=== PATIENT | male | born 1960 | race Two or more races ===

== ENCOUNTER 2021-08-07 15:57 | Inpatient (IN) | payer OTHER ==
[~2021-08-07] VITALS: Ht 172.7 cm; Wt 138.4 kg
[2021-08-07] MEDS ORDERED: methylPREDNISolone SOD SUCC 125 MG/2 ML VL IV ONE (17:30)
[2021-08-07] MEDS ORDERED: ALBUTEROL SULF 2.5 MG/0.5ML(0.5%) NEB SOLN NEB ONE ×2 (19:15→23:45)
[2021-08-07] MEDS ORDERED: IPRATROPIUM BROM 0.5 MG/2.5ML INH SOL NEB ONE ×2 (19:15→23:45)
[2021-08-07 19:51] LABS: Basophils # (auto) 0.2 10 ^3/uL (0-0.2); Basophils % (auto) 3.1 % (0.0-2.0); Eosinophils # (auto) 0.8 10 ^3/uL (0-0.8); Eosinophils % (auto) 12.8 % (0.0-7.0); Hemoglobin 15.4 g/dL (13.5-17.5); Lymphocytes % (auto) 15.5 % (10.0-50.0); Mean Corpuscular Hemoglobin 31.4 pg (28.0-32.0); Mean Corpuscular Hgb Conc. 33.6 g/dL (32.0-36.0); Mean Corpuscular Volume 93.5 fL (80.0-100.0); Monocytes % (auto) 14.6 % (0.0-12.0); Neutrophils # (auto) 3.6 10 ^3/uL (1.6-8.6); Nucleated Red Blood Cells % 0.1 %; Red Blood Cells 4.92 10^6/uL (4.5-5.90); Red Cell Distribution Width 13.9 % (11.8-14.3); White Blood Cell 6.6 10^3/uL (4.4-10.8)
[2021-08-07 19:54] LABS: Albumin 3.8 g/dL (3.4-5.0); Calcium 8.6 mg/dL (8.5-10.1); Potassium 4.6 mmol/L (3.5-5.1)
[2021-08-07 20:02] LABS: BUN/Creatinine Ratio 18.5; Bilirubin, Total 0.4 mg/dL (0.2-1.0)
[2021-08-07] MEDS ORDERED: TEMAZEPAM 15 MG CAP PO PRN (22:00)
[2021-08-07] MEDS ORDERED: ACETAMINOPHEN 325 MG TAB PO PRN (22:00)
[2021-08-07] MEDS ORDERED: MORPHINE SULFATE INJECTION 2 MG/ML SYRG IV PRN (22:00)
[2021-08-07] MEDS ORDERED: ONDANSETRON HCL 4 MG/2 ML VIAL IV PRN (22:00)
[2021-08-07] MEDS ORDERED: NITROGLYCERIN 0.4 MG SL TAB SL PRN (22:00)
[2021-08-07] MEDS: ASCORBIC ACID 500 MG TAB PO SCH (22:45)
[2021-08-07] MEDS: methylPREDNISolone SOD SUCC 125 MG/2 ML VL IV SCH (22:45)
[2021-08-07 23:09] LABS: Urine Bacteria NONE SEEN /hpf (None Seen); Urine Blood Negative /uL (Negative); Urine Hyaline Cast FEW /lpf (0 - 2); Urine Mucus FEW (None Seen); Urine Specific Gravity 1.025 (1.001-1.035); Urine WBC 1 /hpf (0 - 3)
[2021-08-08] VITALS (8 sets, daily range): BP systolic 108–127; BP diastolic 67–87
[2021-08-08] MEDS ORDERED: ALB2.5IS (01:59)
[2021-08-08] MEDS ORDERED: ALBU108A5 IN (01:59)
[2021-08-08] MEDS ORDERED: TIOTCAP IN (01:59)
[2021-08-08] MEDS ORDERED: METO-289 PO (01:59)
[2021-08-08] MEDS ORDERED: INFLUENZA QUAD 2021-2022 0.5 ML SYRG IM ONE (02:00)
[2021-08-08] MEDS ORDERED: ALBUTEROL SULF 2.5 MG/0.5ML(0.5%) NEB SOLN NEB SCH (06:00)
[2021-08-08] MEDS ORDERED: IPRATROPIUM BROM 0.5 MG/2.5ML INH SOL NEB SCH (06:00)
[2021-08-08 06:34] LABS: Basophils # (auto) 0 10 ^3/uL (0-0.2); Basophils % (auto) 0.2 % (0.0-2.0); Eosinophils # (auto) 0 10 ^3/uL (0-0.8); Hematocrit 45.4 % (41.0-53.0); Hemoglobin 15.2 g/dL (13.5-17.5); Lymphocytes # (auto) 0.3 10 ^3/uL (0.4-5.4); Lymphocytes % (auto) 3.6 % (10.0-50.0); Mean Corpuscular Hemoglobin 31.2 pg (28.0-32.0); Mean Corpuscular Hgb Conc. 33.4 g/dL (32.0-36.0); Mean Corpuscular Volume 93.6 fL (80.0-100.0); Monocytes # (auto) 0.1 10 ^3/uL (0-1.3); Monocytes % (auto) 1.1 % (0.0-12.0); Neutrophils # (auto) 8.5 10 ^3/uL (1.6-8.6); Neutrophils % (auto) 95.1 % (37.0-80.0); Red Blood Cells 4.85 10^6/uL (4.5-5.90); Red Cell Distribution Width 14.1 % (11.8-14.3); White Blood Cell 8.9 10^3/uL (4.4-10.8)
[2021-08-08 06:36] LABS: BUN/Creatinine Ratio 20.2; Calcium 8.9 mg/dL (8.5-10.1)
[2021-08-08] MEDS: IPRATROPIUM BROM 0.5 MG/2.5ML INH SOL NEB SCH ×5 (07:34→22:00)
[2021-08-08] MEDS: ALBUTEROL SULF 2.5 MG/0.5ML(0.5%) NEB SOLN NEB SCH ×5 (07:34→22:00)
[2021-08-08] MEDS: PANTOPRAZOLE 40 MG TAB PO SCH (09:21)
[2021-08-08] MEDS: methylPREDNISolone SOD SUCC 125 MG/2 ML VL IV SCH ×3 (09:21→21:34)
[2021-08-08] MEDS: ZINC SULFATE 220mg CAP or TAB PO SCH (09:21)
[2021-08-08] MEDS: ASCORBIC ACID 500 MG TAB PO SCH ×2 (09:22→21:35)
[2021-08-08] MEDS: THROAT LOZENGES(CEPASTAT) MT PRN (13:34)
[2021-08-08] MEDS: DOXYCYCLINE 100MG/250ML 250 ML IV SCH (13:34)
[2021-08-08] MEDS: FUROSEMIDE 20 MG/2 ML VIAL IV SCH (17:46)
[2021-08-08] MEDS: BUDESONIDE (INHALATION) 0.5 MG/2 ML NEB NEB SCH (18:37)
[2021-08-08] MEDS: POTASSIUM EFFERVESENT TAB 25 MEQ PO SCH (21:35)
[2021-08-09] MEDS: DOXYCYCLINE 100MG/250ML 250 ML IV SCH ×2 (01:18→12:44)
[2021-08-09] MEDS: PROMETHAZINE W/CODEINE 5 ML ORAL SYRUP PO PRN ×2 (02:53→09:41)
[2021-08-09] MEDS: methylPREDNISolone SOD SUCC 125 MG/2 ML VL IV SCH ×2 (05:17→09:39)
[2021-08-09] MEDS: FUROSEMIDE 20 MG/2 ML VIAL IV SCH ×2 (05:18→17:24)
[2021-08-09] MEDS ORDERED: ALBUTEROL SULF 2.5 MG/0.5ML(0.5%) NEB SOLN NEB SCH (06:00)
[2021-08-09] MEDS ORDERED: IPRATROPIUM BROM 0.5 MG/2.5ML INH SOL NEB SCH (06:00)
[2021-08-09 06:17] LABS: Albumin 3.6 g/dL (3.4-5.0); Calcium 8.4 mg/dL (8.5-10.1); Potassium 4.7 mmol/L (3.5-5.1)
[2021-08-09 06:20] LABS: BUN/Creatinine Ratio 28.6; Bilirubin, Total 0.4 mg/dL (0.2-1.0); Total Protein 6.2 g/dL (6.4-8.2)
[2021-08-09] MEDS: ALBUTEROL SULF 2.5 MG/0.5ML(0.5%) NEB SOLN NEB SCH ×5 (07:33→22:52)
[2021-08-09] MEDS: IPRATROPIUM BROM 0.5 MG/2.5ML INH SOL NEB SCH ×5 (07:34→22:52)
[2021-08-09 08:00] VITALS: BP 119/67
[2021-08-09 08:33] VITALS: BP 119/67
[2021-08-09] MEDS: ZINC SULFATE 220mg CAP or TAB PO SCH (09:39)
[2021-08-09] MEDS: PANTOPRAZOLE 40 MG TAB PO SCH (09:39)
[2021-08-09] MEDS: ASCORBIC ACID 500 MG TAB PO SCH (09:39)
[2021-08-09] MEDS: POTASSIUM EFFERVESENT TAB 25 MEQ PO SCH ×2 (09:40→21:44)
[2021-08-09] MEDS: THROAT LOZENGES(CEPASTAT) MT PRN (09:40)
[2021-08-09] MEDS: ENOXAPARIN SOD 40 MG/0.4 ML SYRINGE SC SCH (09:40)
[2021-08-09] MEDS: BUDESONIDE (INHALATION) 0.5 MG/2 ML NEB NEB SCH ×2 (10:36→18:19)
[2021-08-09 13:08] VITALS: BP 126/71
[2021-08-09] MEDS ORDERED: methylPREDNISolone SOD SUCC 40 MG/ML VL IV SCH (15:30)
[2021-08-09] MEDS ORDERED: IOHEXOL 350 MG/ML 100ML IJ ONE (15:50)
[2021-08-09] MEDS: methylPREDNISolone SOD SUCC 40 MG/ML VL IV SCH ×2 (16:02→21:43)
[2021-08-09 17:16] VITALS: BP 123/71
[2021-08-09] MEDS: LIDOCAINE VISCOUS 2% 15ML UD MT SCH (17:24)
[2021-08-09] MEDS: ALPRAZolam 0.25 MG TAB PO SCH (21:44)
[2021-08-09 22:00] VITALS: BP 125/68
[2021-08-10] MEDS: DOXYCYCLINE 100MG/250ML 250 ML IV SCH ×2 (00:13→12:56)
[2021-08-10] MEDS: LIDOCAINE VISCOUS 2% 15ML UD MT SCH ×3 (00:13→12:04)
[2021-08-10] MEDS: ALBUTEROL SULF 2.5 MG/0.5ML(0.5%) NEB SOLN NEB SCH ×6 (02:45→22:38)
[2021-08-10] MEDS: IPRATROPIUM BROM 0.5 MG/2.5ML INH SOL NEB SCH ×6 (02:45→22:38)
[2021-08-10] MEDS: methylPREDNISolone SOD SUCC 40 MG/ML VL IV SCH ×4 (04:45→21:57)
[2021-08-10 05:00] VITALS: BP 110/69
[2021-08-10] MEDS: FUROSEMIDE 20 MG/2 ML VIAL IV SCH ×2 (05:00→18:00)
[2021-08-10 07:05] LABS: Albumin 3.8 g/dL (3.4-5.0); Calcium 8.9 mg/dL (8.5-10.1); Potassium 4.6 mmol/L (3.5-5.1)
[2021-08-10 07:07] LABS: BUN/Creatinine Ratio 28.3
[2021-08-10 07:13] LABS: Bilirubin, Total 0.4 mg/dL (0.2-1.0); Total Protein 6.7 g/dL (6.4-8.2)
[2021-08-10 09:04] VITALS: BP 101/52
[2021-08-10] MEDS: POTASSIUM EFFERVESENT TAB 25 MEQ PO SCH ×2 (09:48→21:57)
[2021-08-10] MEDS: PANTOPRAZOLE 40 MG TAB PO SCH (09:49)
[2021-08-10] MEDS: ALPRAZolam 0.25 MG TAB PO SCH ×2 (09:49→21:57)
[2021-08-10] MEDS: THROAT LOZENGES(CEPASTAT) MT PRN (09:49)
[2021-08-10] MEDS: ENOXAPARIN SOD 40 MG/0.4 ML SYRINGE SC SCH (09:51)
[2021-08-10] MEDS: BUDESONIDE (INHALATION) 0.5 MG/2 ML NEB NEB SCH (11:01)
[2021-08-10 13:10] VITALS: BP 131/79
[2021-08-10] MEDS ORDERED: PRED20TA2 PO (16:15)
[2021-08-10] MEDS ORDERED: DOXY-346 PO (16:15)
[2021-08-10] MEDS ORDERED: NAS17NSL (16:15)
[2021-08-10] MEDS ORDERED: ACE104IS NEB (16:15)
[2021-08-10] MEDS ORDERED: IPRA0.00 NEB (16:15)
[2021-08-10 16:57] VITALS: BP 128/67
[2021-08-10] MEDS: ACETYLCYSTEINE 10 %(100MG/ML) SOL 4ML NEB SCH ×2 (18:44→22:38)
[2021-08-10 22:00] VITALS: BP 114/69
[2021-08-10] MEDS: FLUTICASONE PROP NASAL SPR 0.05 % (50MCG) 16GM EACHNOSTRI SCH (22:04)
[2021-08-10] MEDS: PROMETHAZINE W/CODEINE 5 ML ORAL SYRUP PO PRN (23:24)
[2021-08-11] MEDS: DOXYCYCLINE 100MG/250ML 250 ML IV SCH ×2 (00:36→12:32)
[2021-08-11] MEDS: ALBUTEROL SULF 2.5 MG/0.5ML(0.5%) NEB SOLN NEB SCH ×4 (02:46→15:13)
[2021-08-11] MEDS: IPRATROPIUM BROM 0.5 MG/2.5ML INH SOL NEB SCH ×3 (02:46→11:02)
[2021-08-11] MEDS: ACETYLCYSTEINE 10 %(100MG/ML) SOL 4ML NEB SCH ×4 (02:47→15:13)
[2021-08-11] MEDS: methylPREDNISolone SOD SUCC 40 MG/ML VL IV SCH ×3 (04:10→15:45)
[2021-08-11 04:39] VITALS: BP 121/70
[2021-08-11] MEDS: FUROSEMIDE 20 MG/2 ML VIAL IV SCH (06:45)
[2021-08-11 07:02] LABS: Albumin 3.2 g/dL (3.4-5.0); Calcium 8.1 mg/dL (8.5-10.1); Potassium 4.8 mmol/L (3.5-5.1)
[2021-08-11 07:05] LABS: Bilirubin, Total 0.5 mg/dL (0.2-1.0); Total Protein 5.6 g/dL (6.4-8.2)
[2021-08-11 09:00] VITALS: BP 114/76
[2021-08-11] MEDS: PANTOPRAZOLE 40 MG TAB PO SCH (09:47)
[2021-08-11] MEDS: POTASSIUM EFFERVESENT TAB 25 MEQ PO SCH (09:47)
[2021-08-11] MEDS: FLUTICASONE PROP NASAL SPR 0.05 % (50MCG) 16GM EACHNOSTRI SCH (09:48)
[2021-08-11] MEDS: ALPRAZolam 0.25 MG TAB PO SCH (09:48)
[2021-08-11] MEDS: ENOXAPARIN SOD 40 MG/0.4 ML SYRINGE SC SCH (09:49)
[2021-08-11 13:00] VITALS: BP 110/71
[2021-08-11 13:44] VITALS: BP 110/71
[2021-08-11] MEDS ORDERED: ALPR0.25 PO (13:44)
== END 2021-08-11 16:47 | disposition home or self-care (01) | DRG 189 ==
LOC: ER 15:57 → EDBD 15:57 → TELE 21:58 → TELE-CENTR 23:42
PROVIDERS: ADMIT Nurse Practitioner; ATTEND Hospitalist
PROC: 5A09357 Assistance with Respiratory Ventilation, Less than 24 Consecutive Hours, Continuous Positive Airway Pressure (ICD-10-PCS; principal; 2021-08-08)
PROC: 5A09357 Assistance with Respiratory Ventilation, Less than 24 Consecutive Hours, Continuous Positive Airway Pressure (ICD-10-PCS; 2021-08-09)
PROC: 5A09357 Assistance with Respiratory Ventilation, Less than 24 Consecutive Hours, Continuous Positive Airway Pressure (ICD-10-PCS; 2021-08-10)
PROC: 5A09357 Assistance with Respiratory Ventilation, Less than 24 Consecutive Hours, Continuous Positive Airway Pressure (ICD-10-PCS; 2021-08-11)
DX: J96.20 Acute and chronic respiratory failure, unspecified whether with hypoxia or hypercapnia (principal); J44.1 Chronic obstructive pulmonary disease with (acute) exacerbation; Z68.42 Body mass index [BMI] 45.0-49.9, adult; E66.01 Morbid (severe) obesity due to excess calories; I10 Essential (primary) hypertension; F41.9 Anxiety disorder, unspecified; Z20.822 Contact with and (suspected) exposure to COVID-19; Z87.891 Personal history of nicotine dependence
CPT/HCPCS: 36415; 36600; 71045; 71275; 80048; 80053; 81001; 82728; 82805; 83605; 84484; 85025; 85379; 86141; 87040; 87426; 87804; 93005; 93306; 93970; 94640; 94660; 96374; 96375; 97163; 99291; G0378; J3490

== ENCOUNTER 2023-03-25 19:50 | Inpatient (IN) | payer OTHER ==
[~2023-03-25] VITALS: Ht 177.8 cm; Wt 140.2 kg
[~2023-03-25 19:50] MED LIST: ACE104IS NEB; ALB2.5IS; ALBU108A5 IN; ALPR0.25 PO; DOXY-346 PO; IPRA0.00 NEB; METO-289 PO; NAS17NSL; PRED20TA2 PO; TIOTCAP IN
[2023-03-25] MEDS ORDERED: ALBUTEROL SULF 2.5 MG/0.5ML(0.5%) NEB SOLN NEB ONE (20:00)
[2023-03-25] MEDS ORDERED: IPRATROPIUM BROM 0.5 MG/2.5ML INH SOL NEB ONE (20:00)
[2023-03-25 20:23] LABS: Basophils # (auto) 0.1 10 ^3/uL (0-0.2); Basophils % (auto) 1.3 % (0.0-2.0); Eosinophils # (auto) 0.8 10 ^3/uL (0-0.8); Eosinophils % (auto) 9.7 % (0.0-7.0); Hematocrit 48.1 % (41.0-53.0); Lymphocytes # (auto) 1.4 10 ^3/uL (0.4-5.4); Lymphocytes % (auto) 17.1 % (10.0-50.0); Mean Corpuscular Hemoglobin 31.8 pg (28.0-32.0); Mean Corpuscular Hgb Conc. 33.3 g/dL (32.0-36.0); Mean Corpuscular Volume 95.4 fL (80.0-100.0); Monocytes # (auto) 1.1 10 ^3/uL (0-1.3); Monocytes % (auto) 13.4 % (0.0-12.0); Neutrophils # (auto) 4.7 10 ^3/uL (1.6-8.6); Neutrophils % (auto) 58.5 % (37.0-80.0); Nucleated Red Blood Cells % 0.1 %; Red Blood Cells 5.05 10^6/uL (4.5-5.90); Red Cell Distribution Width 14.1 % (11.8-14.3)
[2023-03-25 20:38] LABS: INR 1.03 (0.9-1.15); Partial Thromboplastin Time 28.7 SEC (24.5-34.5); Prothrombin Time 10.8 sec (9.3-11.8)
[2023-03-25 20:45] LABS: Albumin 3.8 g/dL (3.4-5.0); Potassium 4.5 mmol/L (3.5-5.1)
[2023-03-25 20:49] LABS: BUN/Creatinine Ratio 16.7 (10.0-20.0); Bilirubin, Total 0.3 mg/dL (0.2-1.0); Total Protein 6.6 g/dL (6.4-8.2)
[2023-03-26] VITALS (9 sets, daily range): BP systolic 112; BP diastolic 77; PULSE 81–105; RESP 16–22; TEMP 98; O2SAT 90–96
[2023-03-26] MEDS ORDERED: IPRATROPIUM BROM 0.5 MG/2.5ML INH SOL NEB ONE (00:30)
[2023-03-26] MEDS ORDERED: ALBUTEROL SULF 2.5 MG/0.5ML(0.5%) NEB SOLN NEB ONE (00:30)
[2023-03-26] MEDS ORDERED: AZITHROMYCIN 500MG/ 250ML 250 ML IV ONE (00:45)
[2023-03-26] MEDS ORDERED: DexAMETHasone SOD PHOS 10MG/1ML VIAL INJ IV ONE (00:45)
[2023-03-26] MEDS: ALBUTEROL SULF 2.5 MG/0.5ML(0.5%) NEB SOLN NEB ONE ×2 (00:48→01:04)
[2023-03-26] MEDS ORDERED: MORPHINE SULFATE INJ 2 MG/ml SYRG IV PRN (05:30)
[2023-03-26] MEDS ORDERED: IPRATROPIUM BROM 0.5 MG/2.5ML INH SOL NEB PRN (05:30)
[2023-03-26] MEDS ORDERED: ALBUTEROL SULF 2.5 MG/0.5ML(0.5%) NEB SOLN NEB PRN (05:30)
[2023-03-26] MEDS ORDERED: ACETAMINOPHEN 325 MG TAB PO PRN (05:30)
[2023-03-26] MEDS ORDERED: NITROGLYCERIN 0.4 MG SL TAB SL PRN (05:30)
[2023-03-26] MEDS ORDERED: ONDANSETRON HCL 4 MG/2 ML VIAL IV PRN (05:30)
[2023-03-26] MEDS: BUDESONIDE (INHALATION) 0.5 MG/2 ML NEB NEB SCH ×2 (07:06→18:08)
[2023-03-26] MEDS: methylPREDNISolone SOD SUCC 40 MG/ML VL IV SCH ×2 (09:32→22:35)
[2023-03-26] MEDS: ENOXAPARIN SOD 40 MG/0.4 ML SYRINGE SC SCH (09:32)
[2023-03-26] MEDS: PANTOPRAZOLE 40 MG TAB PO SCH (09:32)
[2023-03-26] MEDS: LISINOPRIL 20 MG TAB PO SCH (09:32)
[2023-03-26] MEDS: IPRATROPIUM BROM 0.5 MG/2.5ML INH SOL NEB PRN ×2 (15:50→18:08)
[2023-03-26] MEDS: ALBUTEROL SULF 2.5 MG/0.5ML(0.5%) NEB SOLN NEB PRN ×2 (15:50→18:08)
[2023-03-27] VITALS (15 sets, daily range): BP systolic 106–122; BP diastolic 41–74; PULSE 64–96; RESP 16–22; TEMP 97–98.7; O2SAT 87–98
[2023-03-27] MEDS ORDERED: LISI20TA56 PO (01:13)
[2023-03-27] MEDS ORDERED: BUDE1AER6 INH (01:13)
[2023-03-27] MEDS: IPRATROPIUM BROM 0.5 MG/2.5ML INH SOL NEB PRN ×2 (04:15→16:17)
[2023-03-27] MEDS: ALBUTEROL SULF 2.5 MG/0.5ML(0.5%) NEB SOLN NEB PRN ×2 (04:16→16:17)
[2023-03-27 05:57] LABS: Basophils # (auto) 0 10 ^3/uL (0-0.2); Basophils % (auto) 0.1 % (0.0-2.0); Eosinophils # (auto) 0 10 ^3/uL (0-0.8); Hematocrit 46.3 % (41.0-53.0); Hemoglobin 15.1 g/dL (13.5-17.5); Lymphocytes # (auto) 0.5 10 ^3/uL (0.4-5.4); Lymphocytes % (auto) 3.2 % (10.0-50.0); Mean Corpuscular Hemoglobin 31.7 pg (28.0-32.0); Mean Corpuscular Hgb Conc. 32.6 g/dL (32.0-36.0); Mean Corpuscular Volume 97.1 fL (80.0-100.0); Monocytes # (auto) 0.6 10 ^3/uL (0-1.3); Monocytes % (auto) 4.2 % (0.0-12.0); Neutrophils # (auto) 13.7 10 ^3/uL (1.6-8.6); Neutrophils % (auto) 92.5 % (37.0-80.0); Red Blood Cells 4.77 10^6/uL (4.5-5.90); Red Cell Distribution Width 14.7 % (11.8-14.3); White Blood Cell 14.9 10^3/uL (4.4-10.8)
[2023-03-27 06:24] LABS: Alanine Aminotransferase 29 U/L (7-40); Alkaline Phosphatase 77 U/L (46-116); Anion Gap 6.4 (5-15); Blood Urea Nitrogen 21 mg/dL (9-23); Calcium 9.2 mg/dL (8.7-10.4); Carbon Dioxide 27.6 mmol/L (20-30); Chloride 101 mmol/L (98-107); Glucose 199 mg/dL (74-106); Potassium 4.9 mmol/L (3.5-5.1); Sodium 135 mmol/L (136-145)
[2023-03-27 06:25] LABS: Albumin 4.1 g/dL (3.2-4.8); Aspartate Aminotransferase 14 U/L (13-40); Bilirubin, Total 0.5 mg/dL (0.2-1.0); Total Protein 6.1 g/dL (5.7-8.2)
[2023-03-27] MEDS ORDERED: DEXTROSE (50%) 50ML SYRG IV ONE (07:15)
[2023-03-27] MEDS ORDERED: ACCU-CHEK COMFORT CURVE STRIP VI ONE (07:15)
[2023-03-27] MEDS ORDERED: AZIT500T66 PO (09:36)
[2023-03-27] MEDS ORDERED: PRED20TA2 PO (09:36)
[2023-03-27] MEDS: BUDESONIDE (INHALATION) 0.5 MG/2 ML NEB NEB SCH ×2 (10:18→18:24)
[2023-03-27] MEDS: PANTOPRAZOLE 40 MG TAB PO SCH (10:58)
[2023-03-27] MEDS: LISINOPRIL 20 MG TAB PO SCH (10:58)
[2023-03-27] MEDS: AZITHROMYCIN 500MG/ 250ML 250 ML IV SCH (10:58)
[2023-03-27] MEDS: ENOXAPARIN SOD 40 MG/0.4 ML SYRINGE SC SCH (10:59)
[2023-03-27] MEDS: methylPREDNISolone SOD SUCC 40 MG/ML VL IV SCH ×2 (10:59→21:23)
[2023-03-27] MEDS ORDERED: InsuLIN REG 1unit/0.01ml Soln (100units/ml) SC ONE (11:30)
[2023-03-27 13:30] LABS: Base Excess 1.9 mmol/L (-2.0-2.0)
[2023-03-27] MEDS: guaiFENesin-DM 100/10mg/5ml SYR PO PRN (18:40)
[2023-03-28] VITALS (7 sets, daily range): BP systolic 108–118; BP diastolic 53–75; PULSE 71–89; RESP 20–22; TEMP 97.4–98; O2SAT 90–99
[2023-03-28] MEDS: guaiFENesin-DM 100/10mg/5ml SYR PO PRN (06:12)
[2023-03-28] MEDS: IPRATROPIUM BROM 0.5 MG/2.5ML INH SOL NEB PRN ×2 (07:07→10:04)
[2023-03-28] MEDS: ALBUTEROL SULF 2.5 MG/0.5ML(0.5%) NEB SOLN NEB PRN ×2 (07:08→10:04)
[2023-03-28] MEDS: BUDESONIDE (INHALATION) 0.5 MG/2 ML NEB NEB SCH (07:08)
[2023-03-28 08:47] LABS: Basophils # (auto) 0.3 10 ^3/uL (0-0.2); Basophils % (auto) 1.9 % (0.0-2.0); Eosinophils # (auto) 0 10 ^3/uL (0-0.8); Hematocrit 48.2 % (41.0-53.0); Hemoglobin 15.7 g/dL (13.5-17.5); Lymphocytes # (auto) 0.7 10 ^3/uL (0.4-5.4); Lymphocytes % (auto) 5.1 % (10.0-50.0); Mean Corpuscular Hemoglobin 31.4 pg (28.0-32.0); Mean Corpuscular Hgb Conc. 32.6 g/dL (32.0-36.0); Mean Corpuscular Volume 96.4 fL (80.0-100.0); Monocytes # (auto) 0.6 10 ^3/uL (0-1.3); Monocytes % (auto) 4.5 % (0.0-12.0); Neutrophils % (auto) 88.5 % (37.0-80.0); Red Cell Distribution Width 14.4 % (11.8-14.3); White Blood Cell 13.6 10^3/uL (4.4-10.8)
[2023-03-28] MEDS: methylPREDNISolone SOD SUCC 40 MG/ML VL IV SCH (08:52)
[2023-03-28] MEDS: LISINOPRIL 20 MG TAB PO SCH (08:52)
[2023-03-28] MEDS: PANTOPRAZOLE 40 MG TAB PO SCH (08:52)
[2023-03-28] MEDS: AZITHROMYCIN 500MG/ 250ML 250 ML IV SCH (08:52)
[2023-03-28] MEDS: ENOXAPARIN SOD 40 MG/0.4 ML SYRINGE SC SCH (08:52)
[2023-03-28 09:44] LABS: Chloride 100 mmol/L (98-107); Potassium 4.7 mmol/L (3.5-5.1); Sodium 136 mmol/L (136-145)
[2023-03-28 09:45] LABS: Anion Gap 7.7 (5-15); Calcium 9.2 mg/dL (8.5-10.1); Carbon Dioxide 28.3 mmol/L (20-30)
[2023-03-28 09:50] LABS: BUN/Creatinine Ratio 24.7 (10.0-20.0); Blood Urea Nitrogen 22 mg/dL (9-23); Glucose 227 mg/dL (74-106)
[2023-03-28] MEDS ORDERED: BUDE1AER6 INH (09:56)
== END 2023-03-28 14:18 | disposition home or self-care (01) | DRG 189 ==
LOC: ER 19:50 → TELE 03-26 05:25 → TELE-WESTW 03-26 23:51
PROVIDERS: ADMIT Internal Medicine Pulmonary Disease
DX: J96.21 Acute and chronic respiratory failure with hypoxia (principal); J44.1 Chronic obstructive pulmonary disease with (acute) exacerbation; Z68.41 Body mass index [BMI] 40.0-44.9, adult; I10 Essential (primary) hypertension; E66.01 Morbid (severe) obesity due to excess calories; Z87.891 Personal history of nicotine dependence; R73.03 Prediabetes
CPT/HCPCS: 36415; 36600; 71045; 71250; 80048; 80053; 82805; 83036; 83880; 84484; 85025; 85379; 85610; 85730; 93005; 94640; 99291; G0378; J1100; J1815